=== PATIENT | female | born 1985 | race African-American/Black ===

== ENCOUNTER 2021-11-04 13:11 | Emergency (ER) | payer MEDICAID ==
[~2021-11-04] VITALS: Ht 154.9 cm; Wt 72.0 kg
[2021-11-04] MEDS ORDERED: GUAI120017 MT (16:11)
[2021-11-04] MEDS ORDERED: ACET-2708 MT (16:11)
[2021-11-04] MEDS ORDERED: KETOROLAC 30MG/ML VIAL IM ONE (16:15)
[2021-11-04 17:02] VITALS: BP 142/64
== END 2021-11-04 17:03 | disposition home or self-care (01) ==
LOC: ER 13:11
DX: B34.9 Viral infection, unspecified (principal); Z97.5 Presence of (intrauterine) contraceptive device; Z20.822 Contact with and (suspected) exposure to COVID-19; Z98.890 Other specified postprocedural states
CPT/HCPCS: 71045; 87426; 96372; 99284; C9803; J1885